=== PATIENT | female | born 1945 | race Caucasian/White ===

== ENCOUNTER 2017-09-23 08:17 | Day surgery (SDC) | payer MEDICARE ==
[2015-12-15 10:21] VITALS: BMI 28.3
[2017-09-23] MEDS ORDERED: Lactated Ringer's 500 ML IV ONE (08:32)
[2017-09-23] MEDS ORDERED: Propofol 10 mg/ml Inj (20 ML) ONE (09:24)
[2017-09-23 10:11] VITALS: PULSE 55
[2017-09-23 10:27] VITALS: BP 119/61; RESP 16; TEMP 97; O2SAT 99
== END 2017-09-23 10:47 | disposition home or self-care (01) ==
LOC: H.ENDO 08:17
PROVIDERS: ATTEND Internal Medicine Gastroenterology
DX: K30 Functional dyspepsia (principal); I10 Essential (primary) hypertension; K44.9 Diaphragmatic hernia without obstruction or gangrene; K31.89 Other diseases of stomach and duodenum; R10.13 Epigastric pain
CPT/HCPCS: 45378; 88305; J2001; J2704; J7120